=== PATIENT | female | born 2000 | race Hispanic/Latino ===

== ENCOUNTER 2025-01-07 18:38 | Emergency (ER) | payer SELFPAY ==
[2025-01-07 18:39] VITALS: BP 137/97; PULSE 78; RESP 18; TEMP 36.8; O2SAT 100
--- NOTE | 2025-01-07 18:43 | ED.ABDPAIN ---
HPI - Abdominal Pain General Chief Complaint: Abdominal Pain Stated Complaint: throwing up Time Seen by Provider: 01/07/25 18:41 History of Present Illness HPI narrative: Pt presents with epigastric abdominal pain and vomiting since yesterday. Pt says the epigastric pain is intermittent but comes on with vomiting. Pt denies diarrhea. Pt says that her emesis today was dark. Pt denies dark stools. Pt does not smoke or take nsaids regularly or drink a lot of caffeine. Pt has no history of similar episodes. Related Data Allergies Allergy/AdvReac Type Severity Reaction Status Date / Time No Known Allergies Allergy Verified 01/07/25 18:46 Review of Systems Review of Systems: All systems reviewed & are unremarkable except as noted in HPI and below Exam Const: General: healthy appearing and no acute distress Nutritional Appearance: well nourished Orientation/consciousness: patient oriented x3 Limitations: no limitations Resp: Effort & Inspection: normal respiratory effort Auscultation: clear to auscultation bilaterally Cardio: Rate: regular rate Rhythm: regular rhythm GI: GI Palp: Yes Soft to palpation and Yes Tenderness to palpation present (GI) (minimal epigastric tenderness) Auscultation: normal bowel sounds Skin: General skin exam: normal color Rashes: no rashes Wounds: no wounds Neuro: General: patient oriented x3, moves all extremities, no meningeal signs, no focal motor deficits and CN's II-XI intact bilaterally Speech: normal speech Extrem: General: normal to inspection and no clubbing, cyanosis or edema Psych: Mental Status: mental status grossly normal Affect: normal affect Attitude: cooperative Course Vital Signs Vital signs: Vital Signs Temperature 98.2 F 01/07/25 18:39 Pulse Rate 78 01/07/25 18:39 Respiratory Rate 18 01/07/25 18:39 Blood Pressure 137/97 H 01/07/25 18:39 Pulse Oximetry 100 01/07/25 18:39 Oxygen Delivery Room Air 01/07/25 18:39 Temperature 98.2 F 01/07/25 18:39 Pulse Rate 78 01/07/25 18:39 Respiratory Rate 18 01/07/25 18:39 Blood Pressure 137/97 H 01/07/25 18:39 Pulse Oximetry 100 01/07/25 18:39 Oxygen Delivery Room Air 01/07/25 18:39 MDM - Abdominal Pain MDM Narrative Medical decision making narrative: Pt has epigastric pain with vomiting. Pt says had dark emesis this morning. no melena. Will givbe some fluids and IV pepcid and zofran and check labs. Pt better after fluids and zofran/pepcid. home on both Differential Diagnosis Differential diagnosis: Likely abdominal pain, gastroenteritis, pancreatitis, small bowel obstruction and other (PUD Gi bleed) Lab Data Attestation: I reviewed the patient's lab results. 01/07/25 18:53 01/07/25 18:53 Labs: Lab Results 01/07/25 Range/Units 18:53 WBC 5.1 (4.8-10.8) K/mm3 RBC 3.99 L (4.20-5.40) M/mm3 Hgb 10.9 L (12.0-15.0) g/dL Hct 35.0 (35.0-49.0) % MCV 87.7 (78.0-102.0) fL MCH 27.3 (27.0-31.0) pg MCHC 31.1 L (32-36) g/dL RDW 13.5 (11.6-14.4) % Plt Count 207 (150-420) K/mm3 MPV 10.1 (9.2-11.8) fl Immature Gran % (Auto) 0.2 H (0.0-0.0) % Neut % (Auto) 53.3 (50.0-70.0) % Lymph % (Auto) 36.8 (18.0-42.0) % [place] % (Auto) 8.7 (2.0-11.0) % Eos % (Auto) 0.8 L (1.0-6.0) % Baso % (Auto) 0.2 (0.0-1.0) % Lymph # (Auto) 1.87 (1.10-4.50) K/mm3 [place] # (Auto) 0.44 (0.10-0.90) K/mm3 Eos # (Auto) 0.04 (0.02-0.50) K/mm3 Baso # (Auto) 0.01 (0.00-0.10) K/mm3 Abs Immat Gran (auto) 0.01 H (0.00-0.00) K/mm3 Absolute Neuts (auto) 2.71 (1.70-7.20) K/mm3 Absolute Nucleated RBC 0.00 (0.00-0.00) K/mm3 Nucleated RBC % 0.0 (0-0.0) % Sodium 141 (137-145) mmol/L Potassium 3.9 (3.4-5.0) mmol/L Chloride 107 (98-107) mmol/L Carbon Dioxide 25 (22-30) mmol/L Anion Gap 9 (4-12) mmol/L BUN 11 (7-17) mg/dL Creatinine 0.56 L (0.7-1.0) mg/dL Estim Creat Clear Calc 105 ml/min Estimated GFR > 60 (59 - ) Glucose 104 (65-110) mg/dL Calculated Osmolality 291 (285-295) mOsm/kg Calcium 9.1 (8.4-10.2) mg/dL Total Bilirubin 0.4 (0.2-1.3) mg/dL AST 23 (14-36) U/L ALT 14 (6-35) U/L Alkaline Phosphatase 54 (38-126) U/L Total Protein 8.4 H (6.3-8.2) g/dL Albumin 4.6 (3.5-5.1) g/dL Lipase 44 (23-300) U/L Discharge Plan Discharge Clinical Impression: Gastroenteritis Patient Disposition: Home Condition: Improved Instructions: Antibiotic Form, Gastritis (DC) Patient Language: Indonesian Prescriptions: New ondansetron 4 mg tablet,disintegrating 4 mg PO Q8H PRN (Reason: nausea and vomiting) Qty: 14 0RF famotidine [Pepcid] 20 mg tablet 20 mg PO BID Qty: 20 0RF Follow-up/Referrals: UNKNOWN,DOCTOR [Non-Staff]
--- NOTE | 2025-01-07 18:47 | PC.NURSE ---
On 01/07/25, the student, [ antonio tavares], provided care and [facility] on this patient. I have reviewed the student's documentation and agree with the findings.
[2025-01-07 18:56] LABS: Hematocrit 35.0 % (35.0-49.0); Hemoglobin 10.9 g/dL (12.0-15.0); Immature Granulocyte Percent A 0.2 % (0.0-0.0); Lymphocytes Absolute Auto 1.87 K/mm3 (1.10-4.50); Mean Corpuscular HGB Conc 31.1 g/dL (32-36); Mean Corpuscular Hemoglobin 27.3 pg (27.0-31.0); Mean Corpuscular Volume 87.7 fL (78.0-102.0); Nucleated Red Blood Cells Absolute Auto 0.00 K/mm3 (0.00-0.00); Nucleated Red Blood Cells Perc 0.0 % (0-0.0); Platelet Count Result 207 K/mm3 (150-420); Red Blood Count 3.99 M/mm3 (4.20-5.40); White Blood Count 5.1 K/mm3 (4.8-10.8)
[2025-01-07] MEDS: SODIUM CHLORIDE 0.9% IV 1,000 ML 999 ML IV CONT (19:07)
[2025-01-07] MEDS: FAMOTIDINE 20 MG/2 ML VIAL IV PUSH (19:08)
[2025-01-07] MEDS: ONDANSETRON INJ 4 MG/2 ML VIAL IV PUSH (19:08)
[2025-01-07 19:14] LABS: Alanine Aminotransferase 14 U/L (6-35); Albumin Level 4.6 g/dL (3.5-5.1); Alkaline Phosphatase 54 U/L (38-126); Anion Gap 9 mmol/L (4-12); Aspartate Amino Transferase 23 U/L (14-36); Bilirubin,Total 0.4 mg/dL (0.2-1.3); Blood Urea Nitrogen 11 mg/dL (7-17); Calcium 9.1 mg/dL (8.4-10.2); Carbon Dioxide 25 mmol/L (22-30); Chloride 107 mmol/L (98-107); Estimated CRCL calculation 105 ml/min; Estimated Glomerular Filt Rate > 60; Glucose 104 mg/dL (65-110); Lipase 44 U/L (23-300); Osmolality Calculated 291 mOsm/kg (285-295); Potassium 3.9 mmol/L (3.4-5.0); Sodium 141 mmol/L (137-145); Total Protein 8.4 g/dL (6.3-8.2)
[2025-01-07 19:58] VITALS: BP 122/74; PULSE 63; RESP 20; TEMP 36.7; O2SAT 100
[2025-01-07 20:04] VITALS: BP 122/74; PULSE 63; RESP 17; TEMP 36.7; O2SAT 100
== END 2025-01-07 20:04 | disposition home or self-care (01) ==
PROVIDERS: Emergency Provider Emergency Medicine; PCP Family Medicine
DX: K52.9 Noninfective gastroenteritis and colitis, unspecified (principal)
CPT/HCPCS: 36415; 80053; 83690; 85025; 96361; 96374; 96375; 99284; J2405; J7030